=== PATIENT | male | born 1950 | race Caucasian/White ===

== ENCOUNTER → 2018-08-19 | Outpatient (CLI) | payer MEDICARE, OTHER ==
[2014-12-07 16:00] VITALS: BMI 26.9
[~2018-08-19] MED LIST: ASPI-1441 PO; ASPI-663 PO; BENA40TA52 PO; BENA40TA53 PO; BUPR-118 PO; CEP500 PO; DAPA1TAB3 PO; DOCU-416 PO; DULA1.5P SUBQ; GLY25 PO; IBUP-1671 PO; INSU300I SQ; LAN30PT PO; LANC-648 MC; LEVI SUBQ; LIRA0.6P3 SQ; LOR5 PO; LOVA40TA89 PO; MET500 PO; METXL50 PO; NEED-1 MC; OXYC-865 PO; ROS10 PO; SAXA1TBM PO; [UNRECOGNIZED DRUG - CODE] PO
--- NOTE | 2018-08-19 10:05 | EKG ---
FACILITY: [facility] [place] PATIENT NAME: DONYA SANCHEZ : [id number] MR: [id number]: [id number] EXAM DATE: ORDERING PHYSICIAN: SINGH ESPINAL TECHNOLOGIST: REYES Corona Reason : PREOP-HAND Blood Pressure : / mmHG Vent. Rate : 086 BPM Atrial Rate : 086 BPM P-R Int : 138 ms QRS Dur : 074 ms QT Int : 360 ms P-R-T Axes : 071 075 059 degrees QTc Int : 430 ms Normal sinus rhythm Normal ECG No previous ECGs available Confirmed by PAYTON GARZA ([id number]) on 08/19/2018 2:17:13 PM Referred By: Confirmed By:PAYTON GARZA
[2018-08-19 10:07] LABS: PLATELET COUNT, AUTOMATED 361 K/uL (150-450)
== END ==
LOC: LAB 09:47
PROVIDERS: ATTEND Anesthesiology
DX: Z01.812 Encounter for preprocedural laboratory examination (principal); Z01.810 Encounter for preprocedural cardiovascular examination; E07.9 Disorder of thyroid, unspecified
CPT/HCPCS: 36415; 84443; 85025; 93005